=== PATIENT | female | born 1940 | race Caucasian/White ===

== ENCOUNTER 2018-07-27 11:12 | Inpatient (IN) | payer MEDICARE, BC, SELFPAY | END 2018-08-03 17:27 | disposition home or self-care (01) | DRG 570 | PROVIDERS: Admitting Provider Internal Medicine; Emergency Provider Emergency Medicine; PCP Family Medicine; Visit Provider Internal Medicine | DX: L89.220 Pressure ulcer of left hip, unstageable (principal); J69.0 Pneumonitis due to inhalation of food and vomit; E43 Unspecified severe protein-calorie malnutrition; C79.9 Secondary malignant neoplasm of unspecified site; J91.0 Malignant pleural effusion; C34.92 Malignant neoplasm of unspecified part of left bronchus or lung; Z66 Do not resuscitate; G35 Multiple sclerosis; G25.81 Restless legs syndrome; L89.029 Pressure ulcer of left elbow, unspecified stage; L89.890 Pressure ulcer of other site, unstageable; Z92.3 Personal history of irradiation; I48.0 Paroxysmal atrial fibrillation; E03.9 Hypothyroidism, unspecified; L89.152 Pressure ulcer of sacral region, stage 2; F09 Unspecified mental disorder due to known physiological condition; E78.5 Hyperlipidemia, unspecified; N39.3 Stress incontinence (female) (male); F41.9 Anxiety disorder, unspecified; Z98.41 Cataract extraction status, right eye; M62.50 Muscle wasting and atrophy, not elsewhere classified, unspecified site; K74.60 Unspecified cirrhosis of liver; F41.8 Other specified anxiety disorders; M19.90 Unspecified osteoarthritis, unspecified site; R13.10 Dysphagia, unspecified; E87.6 Hypokalemia; F03.90 Unspecified dementia, unspecified severity, without behavioral disturbance, psychotic disturbance, mood disturbance, and anxiety; M24.50 Contracture, unspecified joint; T17.908A Unspecified foreign body in respiratory tract, part unspecified causing other injury, initial encounter; M79.89 Other specified soft tissue disorders; R09.02 Hypoxemia; R60.1 Generalized edema | CPT/HCPCS: 36415; 36600; 51701; 71045; 74230; 80048; 80053; 80162; 80202; 81001; 82375; 82565; 82805; 83050; 85025; 85027; 87040; 87070; 87075; 87205; 92611; 93971; 94640; 96361; 96365; 96366; 96367; 99285; A9270; G0378; J1940; J1956; J2405; J3370; J7030; J7060 ==